=== PATIENT | female | born 1970 | race Two or more races ===

== ENCOUNTER 2017-12-24 22:07 | Inpatient (IN) | payer BC ==
[~2017-12-24] VITALS: Ht 152.4 cm; Wt 79.8 kg
[2017-12-24] MEDS ORDERED: FERROUS SULFAT325 MG ORAL (22:17)
[2017-12-24] MEDS ORDERED: FLUOXETINE HCL10 MG ORAL (22:17)
[2017-12-24] MEDS ORDERED: KLONOPIN0.5 MG ORAL (22:17)
[2017-12-24] MEDS ORDERED: Aspirin Baby 81mg ORAL ONE (22:45)
[2017-12-24 23:10] VITALS: BP 200/77
[2017-12-24 23:56] LABS: BASOPHILS % (AUTO) 1.4 % (0.0-2.0); EOSINOPHILS % (AUTO) 2.5 % (0.0-3.0); HEMATOCRIT 40.8 % (37.0-47.0); HEMOGLOBIN 12.7 G/DL (12.0-16.0); LYMPHOCYTES % (AUTO) 31.9 % (20.0-45.0); MEAN CORPUSCULAR VOLUME 74 FL (80-99); MONOCYTES % (AUTO) 9.6 % (1.0-10.0); NEUTROPHILS % (AUTO) 54.7 % (45.0-75.0); PLATELET COUNT 307 K/UL (150-450); RED BLOOD COUNT 5.48 M/UL (4.20-5.40); RED CELL DISTRIBUTION WIDTH 15.8 % (11.6-14.8); WHITE BLOOD COUNT 7.2 K/UL (4.8-10.8)
[2017-12-24 23:57] LABS: APPEARANCE,URINE CLEAR; BILIRUBIN, URINE NEGATIVE (NEGATIVE); COLOR,URINE PALE YELLOW; GLUCOSE, URINE (UA) NEGATIVE (NEGATIVE); KETONES,URINE NEGATIVE (NEGATIVE); LEUKOCYTE ESTERASE ,URINE NEGATIVE (NEGATIVE); NITRITE,URINE NEGATIVE (NEGATIVE); PH,URINE 6.5 (4.5-8.0); PROTEIN,URINE NEGATIVE (NEGATIVE); UROBILINOGEN,URINE NORMAL MG/DL (0.0-1.0)
[2017-12-25] VITALS (15 sets, daily range): BP systolic 108–175; BP diastolic 47–91
[2017-12-25 00:07] LABS: ANION GAP 7 mmol/L (5-15); BLOOD UREA NITROGEN 11 mg/dL (7-18); CALCIUM 9.5 MG/DL (8.5-10.1); CARBON DIOXIDE 25 MMOL/L (21-32); CHLORIDE 104 MMOL/L (98-107); CREATININE 0.6 MG/DL (0.55-1.30); SODIUM 136 MMOL/L (136-145)
[2017-12-25 00:20] LABS: ALANINE AMINOTRANSFERASE 25 U/L (12-78); ALBUMIN 4.1 G/DL (3.4-5.0); ALBUMIN/GLOBULIN RATIO 0.9 (1.0-2.7); ALKALINE PHOSPHATASE 79 U/L (46-116); ASPARTATE AMINO TRANSFERASE 11 U/L (15-37); BILIRUBIN,TOTAL 0.3 MG/DL (0.2-1.0); CKMB < 0.5 NG/ML (0.0-3.6); CREATINE KINASE 66 U/L (26-308)
--- NOTE | 2017-12-25 03:35 | Emergency Room Report ---
History of Present Illness General Chief Complaint: Dizziness Source: Patient Present Illness HPI Is a 47-year-old female with history of high blood pressure and anxiety. She present with chief complaint of dizziness. She's an onset today. 2 episode. When she stood up she felt lightheaded like she passed out. She fell to the floor once. No head injury and no loss of consciousness. [place] palpitation. No focal deficit. It happened once in the afternoon and again tonight so she came in. No chest pain. No slurred speech. Allergies: Coded Allergies: No Known Allergies (Unverified , 12/24/17) Patient History Past Medical History: see triage record, old chart reviewed, HTN, psych hx Past Surgical History: none Pertinent Family History: none Social History: Reports: smoking Last Menstrual Period: 12/04/17 Now: No Immunizations: other Reviewed Nursing Documentation: PMH: Agreed, PSxH: Agreed Nursing Documentation-PMH Past Medical History: No History, Except For Hx Cardiac Problems: No - Anemia Hx Hypertension: Yes History Of Psychiatric Problem: Yes - Anxiety Review of Systems Eye: Denies: eye pain, blurred vision ENT: Denies: ear pain, nose congestion, throat swelling Respiratory: Denies: cough, shortness of breath Cardiovascular: Denies: chest pain, palpitations Gastrointestinal: Denies: abdominal pain, diarrhea, nausea, vomiting Musculoskeletal: Denies: back pain, joint pain Skin: Denies: rash Neurological: Reports: dizziness, Denies: headache, numbness Endocrine: Denies: increased thirst, increased urine Hematologic/Lymphatic: Denies: easy bruising All Other Systems: negative except mentioned in HPI Physical Exam Vital Signs Date Time Temp Pulse Resp B/P (MAP) Pulse Ox O2 Delivery O2 Flow Rate FiO2 12/24/17 22:12 97.9 84 16 197/100 99 Room Air vitals with high blood pressure Sp02 EP Interpretation: reviewed, normal General Appearance: well appearing, no apparent distress, alert Head: normocephalic, atraumatic Eyes: bilateral eye PERRL, bilateral eye EOMI ENT: hearing grossly normal, normal pharynx Neck: full range of motion, supple, no meningismus Respiratory: chest non-tender, lungs clear, normal breath sounds Cardiovascular #1: regular rate, rhythm, no murmur Gastrointestinal: normal bowel sounds, non tender, no mass, no organomegaly, no bruit, non-distended Musculoskeletal: back normal, gait/station normal, normal range of motion Psychiatric: mood/affect normal Skin: warm/dry Procedures Laceration/Wound Repair Laceration/Wound Repair : Consent: Verbal Wound Location: face Wound's Depth, Shape: linear, irregular, contused tissue Wound Length (cm): 5 Wound Explored: clean Irrigated w/ Saline (ccs): 500 Anesthesia: 1% Lidocaine Volume Anesthetic (ccs): 500 Wound Repaired With: sutures Suture Size/Type: 5:0, proline Number of Sutures: 7 Patient Tolerated: Well Complications: None Medical Decision Making Diagnostic Impression: Primary Impression: Syncope and collapse Additional Impressions: Head injury, acute Qualified Codes: S09.90XA - Unspecified injury of head, initial encounter Forehead laceration Qualified Codes: S01.81XA - Laceration without foreign body of other part of head, initial encounter Hypertension Qualified Codes: I10 - Essential (primary) hypertension Orthostatic syncope ER Course This patient presents with dizziness and near syncope. Her blood pressurewas high here. She has been taking clonidine. Initial CT head, blood work and EKG were normal. She felt better was actually going to be discharged as she was to go home. She went to the restroom and she was on the toilet when she had a syncopal episode. She said that she became sweaty and dizzy. I see she knew she was on the ground. Sustained a laceration to the left forehead. It measured about 5 cm. No foreign body. Repeat CT scan is negative. Patient will be admitted. Her repeat EKG was normal. Her blood pressure was low. I discussed case with Dr. Ruiz who will admit based on insurance. Pt has IPA. Laboratory Tests Test 12/24/17 23:30 12/25/17 01:40 White Blood Count 7.2 K/UL (4.8-10.8) Red Blood Count 5.48 M/UL (4.20-5.40) H Hemoglobin 12.7 G/DL (12.0-16.0) Hematocrit 40.8 % (37.0-47.0) Mean Corpuscular Volume 74 FL (80-99) L Mean Corpuscular Hemoglobin 23.2 PG (27.0-31.0) L Mean Corpuscular Hemoglobin Concent 31.1 G/DL (32.0-36.0) L Red Cell Distribution Width 15.8 % (11.6-14.8) H Platelet Count 307 K/UL (150-450) Mean Platelet Volume 9.1 FL (6.5-10.1) Neutrophils (%) (Auto) 54.7 % (45.0-75.0) Lymphocytes (%) (Auto) 31.9 % (20.0-45.0) Monocytes (%) (Auto) 9.6 % (1.0-10.0) Eosinophils (%) (Auto) 2.5 % (0.0-3.0) Basophils (%) (Auto) 1.4 % (0.0-2.0) Urine Color Pale yellow Urine Appearance Clear Urine pH 6.5 (4.5-8.0) Urine Specific [place] 1.010 (1.005-1.035) Urine Protein Negative (NEGATIVE) Urine Glucose (UA) Negative (NEGATIVE) Urine Ketones Negative (NEGATIVE) Urine Occult Blood 1+ (NEGATIVE) H Urine Nitrite Negative (NEGATIVE) Urine Bilirubin Negative (NEGATIVE) Urine Urobilinogen Normal MG/DL (0.0-1.0) Urine Leukocyte Esterase Negative (NEGATIVE) Urine RBC 0-2 /HPF (0 - 2) Urine WBC 0-2 /HPF (0 - 2) Urine Squamous Epithelial Cells Occasional /LPF Urine Bacteria Occasional /HPF (NONE) Urine HCG, Qualitative Negative Sodium Level 136 MMOL/L (136-145) Potassium Level 4.0 MMOL/L (3.5-5.1) Chloride Level 104 MMOL/L (98-107) Carbon Dioxide Level 25 MMOL/L (21-32) Anion Gap 7 mmol/L (5-15) Blood Urea Nitrogen 11 mg/dL (7-18) Creatinine 0.6 MG/DL (0.55-1.30) Estimat Glomerular Filtration Rate > 60 mL/min (>60) Glucose Level 106 MG/DL (74-106) Calcium Level 9.5 MG/DL (8.5-10.1) Total Bilirubin 0.3 MG/DL (0.2-1.0) Aspartate Amino Transf (AST/SGOT) 11 U/L (15-37) L Alanine Aminotransferase (ALT/SGPT) 25 U/L (12-78) Alkaline Phosphatase 79 U/L (46-116) Total Creatine Kinase 66 U/L (26-308) Creatine Kinase MB < 0.5 NG/ML (0.0-3.6) Creatine Kinase MB Relative Index 0.7 Troponin I 0.000 ng/mL (0.000-0.056) 0.000 ng/mL (0.000-0.056) Total Protein 8.5 G/DL (6.4-8.2) H Albumin 4.1 G/DL (3.4-5.0) Globulin 4.4 g/dL Albumin/Globulin Ratio 0.9 (1.0-2.7) L Lab Results Impression labs normal EKG Diagnostic Results Rate: normal Rhythm: NSR ST Segments: no acute changes Other Impression EKG #2: normal sinus rhythm, no ST elevation Rhythm Strip Diag. Results Rhythm Strip Time: 03:31 EP Interpretation: yes Rate: 72 Rhythm: NSR, no PVC's, no ectopy Chest X-Ray Diagnostic Results Chest X-Ray Diagnostic Results : Chest X-Ray Ordered: Yes # of Views/Limited/Complete: 1 View Indication: Other - syncope EP Interpretation: Yes Interpretation: no consolidation, no effusion, no pneumothorax, no acute cardiopulmonary disease Impression: No acute disease Electronically Signed by: Tone Perry MD CT/MRI/US Diagnostic Results CT/MRI/US Diagnostic Results #1: Imaging Test Ordered: CT head Impression Neg per radiologist CT/MRI/US Diagnostic Results #2: Imaging Test Ordered: CT head Impression neg per radiologist. Last Vital Signs Date Time Temp Pulse Resp B/P (MAP) Pulse Ox O2 Delivery O2 Flow Rate FiO2 12/25/17 03:21 97.8 76 22 155/79 100 Room Air Status: improved Disposition: ADMITTED INPATIENT Referrals: MOY LLANOS,REFERRING (PCP) TONE PERRY M.D. Dec 25, 2017 03:35
[2017-12-25] MEDS ORDERED: SIMETHICONE80 MG ORAL (05:14)
[2017-12-25] MEDS ORDERED: clonazePAM 0.5mg tab ORAL PRN (06:30)
[2017-12-25] MEDS ORDERED: Mylanta II UD 30ml ORAL PRN (06:30)
[2017-12-25] MEDS ORDERED: Morphine Sulfate 2mg/ml Inj IVP PRN (06:30)
[2017-12-25] MEDS ORDERED: Nitroglycerin Subl 0.4mg tab SL PRN (06:30)
[2017-12-25] MEDS ORDERED: LORazepam Inj 2mg/ml 1ml IV PRN (06:30)
[2017-12-25] MEDS ORDERED: Albuterol/Ipratropium 3ml neb HHN PRN (06:30)
[2017-12-25] MEDS ORDERED: Miralax 17gm pkt ORAL PRN (06:30)
--- NOTE | 2017-12-25 08:59 | History and Physical ---
History of Present Illness General Date patient seen: Dec 25, 2017 Reason for Hospitalization: Dizziness Present Illness HPI 47-year-old female with history of high blood pressure and anxiety presented to with chief complaint of dizziness. When she stood up she felt lightheaded like she passed out. She fell to the floor once. [place] palpitation. No focal deficit. She went to the restroom in the ER and she was on the toilet when she had a syncopal episode. She said that she became sweaty and dizzy. She sustained a laceration to the left forehead. It was sutured by Er physician and she is admitted for recurrent syncopal episode and uncontrolled hypertension. Allergies: Coded Allergies: No Known Allergies (Unverified , 12/24/17) Medication History Scheduled Ferrous Sulfate* (Ferrous Sulfate*), 325 MG ORAL THREE TIMES A DAY, (Reported) Fluoxetine Hcl* (Fluoxetine Hcl*), 10 MG ORAL BEDTIME, (Reported) Scheduled PRN Clonazepam* (Klonopin*), 0.5 MG ORAL Q6H PRN for For Anxiety, (Reported) Simethicone* (Simethicone*), 80 MG ORAL Q8H PRN for GAS PAIN, (Reported) Patient History Healthcare decision maker Resuscitation status Full Code Advanced Directive on File Past Medical/Surgical History Past Medical/Surgical History: (1) Hypertension Review of Systems Constitutional: Reports: no symptoms Eye: Reports: no symptoms Respiratory: Reports: no symptoms Cardiovascular: Reports: no symptoms Physical Exam General Appearance: WD/WN Lines, tubes and drains: peripheral HEENT: normocephalic Neck: non-tender, supple Respiratory/Chest: chest wall non-tender, lungs clear, normal breath sounds Cardiovascular/Chest: normal peripheral pulses, normal rate Abdomen: normal bowel sounds, non tender Genitourinary/Rectal: normal genital exam Last 24 Hour Vital Signs Date Time Temp Pulse Resp B/P (MAP) Pulse Ox O2 Delivery O2 Flow Rate FiO2 12/25/17 08:00 98.1 89 18 147/82 95 Room Air 12/25/17 04:30 97.3 83 18 150/85 99 Room Air 12/25/17 03:52 87 12/25/17 03:35 97.8 76 22 155/79 100 Room Air 12/25/17 03:21 97.8 76 22 155/79 100 Room Air 12/25/17 02:50 97.8 86 16 162/68 99 Room Air 12/25/17 02:35 97.8 78 16 160/79 99 Room Air 12/25/17 02:20 97.9 78 16 148/80 99 Room Air 12/25/17 02:05 97.9 62 16 114/75 99 Room Air 12/25/17 01:50 97.9 62 16 109/70 99 Room Air 12/25/17 01:35 97.9 62 16 108/47 99 Room Air 12/25/17 01:10 97.9 85 16 159/82 99 Room Air 12/25/17 00:57 97.9 78 16 141/81 99 Room Air 12/25/17 00:45 97.9 69 16 159/81 99 Room Air 12/25/17 00:45 159/81 12/24/17 23:10 97.9 64 16 200/77 99 Room Air 12/24/17 22:12 97.9 84 16 197/100 99 Room Air Intake and Output 12/24/17 12/25/17 19:00 07:00 Intake Total 1000 ml Output Total 900 ml Balance 100 ml IV Total 1000 ml Output Urine Total 900 ml # Voids 3 Laboratory Tests Test 12/24/17 23:30 12/25/17 01:40 White Blood Count 7.2 K/UL (4.8-10.8) Red Blood Count 5.48 M/UL (4.20-5.40) H Hemoglobin 12.7 G/DL (12.0-16.0) Hematocrit 40.8 % (37.0-47.0) Mean Corpuscular Volume 74 FL (80-99) L Mean Corpuscular Hemoglobin 23.2 PG (27.0-31.0) L Mean Corpuscular Hemoglobin Concent 31.1 G/DL (32.0-36.0) L Red Cell Distribution Width 15.8 % (11.6-14.8) H Platelet Count 307 K/UL (150-450) Mean Platelet Volume 9.1 FL (6.5-10.1) Neutrophils (%) (Auto) 54.7 % (45.0-75.0) Lymphocytes (%) (Auto) 31.9 % (20.0-45.0) Monocytes (%) (Auto) 9.6 % (1.0-10.0) Eosinophils (%) (Auto) 2.5 % (0.0-3.0) Basophils (%) (Auto) 1.4 % (0.0-2.0) Urine Color Pale yellow Urine Appearance Clear Urine pH 6.5 (4.5-8.0) Urine Specific [place] 1.010 (1.005-1.035) Urine Protein Negative (NEGATIVE) Urine Glucose (UA) Negative (NEGATIVE) Urine Ketones Negative (NEGATIVE) Urine Occult Blood 1+ (NEGATIVE) H Urine Nitrite Negative (NEGATIVE) Urine Bilirubin Negative (NEGATIVE) Urine Urobilinogen Normal MG/DL (0.0-1.0) Urine Leukocyte Esterase Negative (NEGATIVE) Urine RBC 0-2 /HPF (0 - 2) Urine WBC 0-2 /HPF (0 - 2) Urine Squamous Epithelial Cells Occasional /LPF Urine Bacteria Occasional /HPF (NONE) Urine HCG, Qualitative Negative Sodium Level 136 MMOL/L (136-145) Potassium Level 4.0 MMOL/L (3.5-5.1) Chloride Level 104 MMOL/L (98-107) Carbon Dioxide Level 25 MMOL/L (21-32) Anion Gap 7 mmol/L (5-15) Blood Urea Nitrogen 11 mg/dL (7-18) Creatinine 0.6 MG/DL (0.55-1.30) Estimat Glomerular Filtration Rate > 60 mL/min (>60) Glucose Level 106 MG/DL (74-106) Calcium Level 9.5 MG/DL (8.5-10.1) Total Bilirubin 0.3 MG/DL (0.2-1.0) Aspartate Amino Transf (AST/SGOT) 11 U/L (15-37) L Alanine Aminotransferase (ALT/SGPT) 25 U/L (12-78) Alkaline Phosphatase 79 U/L (46-116) Total Creatine Kinase 66 U/L (26-308) Creatine Kinase MB < 0.5 NG/ML (0.0-3.6) Creatine Kinase MB Relative Index 0.7 Troponin I 0.000 ng/mL (0.000-0.056) 0.000 ng/mL (0.000-0.056) Total Protein 8.5 G/DL (6.4-8.2) H Albumin 4.1 G/DL (3.4-5.0) Globulin 4.4 g/dL Albumin/Globulin Ratio 0.9 (1.0-2.7) L Height (Feet): 5 Height (Inches): 0.00 Weight (Pounds): 176 Medications Current Medications Medications (Trade) Dose Ordered Sig/April Route PRN Reason Start Time Stop Time Status Last Admin Dose Admin Acetaminophen (Tylenol) 650 mg Q4H PRN ORAL fever 12/25/17 06:30 01/24/18 06:29 Al Hydroxide/Mg Hydroxide (Mylanta II) 30 ml Q6H PRN ORAL dyspepsia 12/25/17 06:30 01/24/18 06:29 Albuterol/ Ipratropium (Albuterol/ Ipratropium) 3 ml Q4H PRN HHN Shortness of Breath 12/25/17 06:30 12/30/17 06:29 Clonazepam (KlonoPIN) 0.5 mg Q6H PRN ORAL For Anxiety 12/25/17 06:30 01/01/18 06:29 Clonidine HCl (Catapres Tab) 0.1 mg Q4H PRN ORAL For High Blood Pressure 12/25/17 06:30 01/24/18 06:29 Dextrose (Dextrose 50%) STAT PRN IV Hypoglycemia 12/25/17 06:30 01/24/18 06:29 Fluoxetine HCl (PROzac) 10 mg BEDTIME ORAL 12/25/17 21:00 01/24/18 20:59 Heparin Sodium (Porcine) (Heparin 5000 units/ml) 5,000 units EVERY 12 HOURS SUBQ 12/25/17 09:00 01/24/18 08:59 Lorazepam (Ativan 2mg/ml 1ml) 0.5 mg Q4H PRN IV For Anxiety 12/25/17 06:30 01/01/18 06:29 Morphine Sulfate (Morphine Sulfate) 1 mg Q4H PRN IVP For Pain 7-10 12/25/17 06:30 01/01/18 06:29 Nitroglycerin (Ntg) 0.4 mg Q5M X 3 DOSES PRN SL Prn Chest Pain 12/25/17 06:30 01/24/18 06:29 Ondansetron HCl (Zofran) 4 mg Q6H PRN IVP Nausea & Vomiting 12/25/17 06:30 01/24/18 06:29 Polyethylene Glycol (Miralax) 17 gm HSPRN PRN ORAL Constipation 12/25/17 06:30 01/24/18 06:29 Temazepam (Restoril) 15 mg HSPRN PRN ORAL Insomnia 12/25/17 06:30 01/01/18 06:29 Assessment/Plan Problem List: (1) Syncope and collapse ICD Codes: R55 - Syncope and collapse SNOMED: [id number] (2) Hypertension ICD Codes: I10 - Essential (primary) hypertension SNOMED: 13033276 Qualifiers: Qualified Codes: I10 - Essential (primary) hypertension Assessment/Plan echo neuro and cardio evaluation monitor bp PEDRO PABLO ESTEVES Dec 25, 2017 08:59
[2017-12-25] MEDS: Heparin 5000 units/ml inj SUBQ SCH ×2 (09:53→21:12)
--- NOTE | 2017-12-25 10:41 | Diagnostic Imaging Report ---
Indication: Chest pain Technique: XRAY Chest 1v Comparison: None Findings: Heart appears enlarged. Mediastinal contours are sharp. There is no focal airspace consolidation, pleural effusion or pneumothorax. A 3 mm rounded structure projecting over the right heart border likely represents an imaged vessel on end. Metallic density structure projecting over the spine likely external to patient. No acute osseous abnormality seen. Impression: No radiographic evidence of acute cardiopulmonary disease. Mild cardiomegaly.
--- NOTE | 2017-12-25 11:39 | Diagnostic Imaging Report ---
Indication: Vertigo, syncope Technique: Continuous helical CT scanning of the head was performed utilizing automated exposure control without intravenous contrast material. Axial and coronal reconstructions were obtained. Comparison: None CT dose: Total DLP 1390.16 mGycm; CTDI vol 70.38 mGy Findings: There is no acute intracranial hemorrhage, mass effect or cortical edema. The ventricles, cisterns and sulci are normal for age. Visualized mastoid air cells and paranasal sinuses are unremarkable. No focal lesions of the bony calvarium or soft tissues of the scalp are seen. IMPRESSION: No evidence of acute intracranial hemorrhage, mass effect or cortical edema. MRI may be obtained for more sensitive evaluation as clinically indicated. This corresponds with the statrad preliminary report. The CT scanner at [facility] is accredited by the [employer] and the scans are performed using protocols designed to limit radiation exposure to as low as reasonably achievable to attain images of sufficient resolution adequate for diagnostic evaluation.
--- NOTE | 2017-12-25 11:44 | Diagnostic Imaging Report ---
Indication: Trauma. Technique: Continuous helical CT scanning of the head was performed utilizing automated exposure control without intravenous contrast material. Axial and coronal reconstructions were obtained. Comparison: 12/24/2017, 23:56 CT dose: Total DLP 1411.27 mGycm; CTDI vol 70.38 mGy Findings: There is no acute intracranial hemorrhage, mass effect or cortical edema. The ventricles, cisterns and sulci are normal for age. Visualized mastoid air cells and paranasal sinuses are unremarkable. There is no depressed skull fracture or scalp hematoma. IMPRESSION: No evidence of acute intracranial hemorrhage, mass effect or cortical edema. MRI may be obtained for more sensitive evaluation as clinically indicated. No depressed skull fracture. This corresponds with the statrad preliminary report. The CT scanner at [facility] is accredited by the [employer] and the scans are performed using protocols designed to limit radiation exposure to as low as reasonably achievable to attain images of sufficient resolution adequate for diagnostic evaluation.
[2017-12-25] MEDS ORDERED: FLUoxetine 10mg cap ORAL SCH (21:00)
[2017-12-26] VITALS: BP 147/82
[2017-12-26 04:00] VITALS: BP 135/76
[2017-12-26 08:00] VITALS: BP 187/93
[2017-12-26 08:38] LABS: BASOPHILS % (AUTO) 0.8 % (0.0-2.0); EOSINOPHILS % (AUTO) 1.2 % (0.0-3.0); HEMOGLOBIN 11.3 G/DL (12.0-16.0); LYMPHOCYTES % (AUTO) 35.2 % (20.0-45.0); MEAN CORPUSCULAR VOLUME 75 FL (80-99); MONOCYTES % (AUTO) 9.1 % (1.0-10.0); NEUTROPHILS % (AUTO) 53.7 % (45.0-75.0); PLATELET COUNT 296 K/UL (150-450); RED BLOOD COUNT 4.66 M/UL (4.20-5.40); RED CELL DISTRIBUTION WIDTH 15.9 % (11.6-14.8); WHITE BLOOD COUNT 8.1 K/UL (4.8-10.8)
--- NOTE | 2017-12-26 08:58 | Pulmonology Progress Note ---
Assessment/Plan Problems: (1) Syncope and collapse (2) Hypertension Assessment/Plan BP monitoring add Norvasc and clonidine awaiting cardio and neuro evaluation Subjective ROS Limited/Unobtainable: No Allergies: Coded Allergies: No Known Allergies (Unverified , 12/24/17) Objective Last 24 Hour Vital Signs Date Time Temp Pulse Resp B/P (MAP) Pulse Ox O2 Delivery O2 Flow Rate FiO2 12/26/17 08:23 61 18 Room Air 12/26/17 04:00 98.2 68 18 135/76 96 12/26/17 04:00 49 12/26/17 00:00 69 12/26/17 00:00 97.2 97 20 147/82 96 12/25/17 20:00 72 12/25/17 20:00 97.9 71 18 130/63 96 12/25/17 19:57 68 16 Room Air 12/25/17 17:35 175/91 12/25/17 16:00 83 12/25/17 16:00 98.1 80 18 175/91 96 Room Air 12/25/17 12:00 84 12/25/17 12:00 98.1 84 18 158/90 99 Room Air Intake and Output 12/25/17 12/26/17 19:00 07:00 Intake Total 1080 ml 240 ml Output Total 1500 ml Balance -420 ml 240 ml Intake Oral 1080 ml 240 ml Output Urine Total 1500 ml # Voids 1 Objective General Appearance: WD/WN HEENT: normocephalic Respiratory/Chest: chest wall non-tender, lungs clear, normal breath sounds Cardiovascular: normal peripheral pulses, normal rate Abdomen: normal bowel sounds, soft, non tender, no organomegaly Extremities: no cyanosis, no clubbing Neurologic/Psychiatric: cost controller II-XII grossly normal Lymphatic: no neck adenopathy Laboratory Tests 12/26/17 07:37: White Blood Count 8.1, Red Blood Count 4.66, Hemoglobin 11.3L, Hematocrit 35.0L , Mean Corpuscular Volume 75L, Mean Corpuscular Hemoglobin 24.2L, Mean Corpuscular Hemoglobin Concent 32.3, Red Cell Distribution Width 15.9H, Platelet Count 296, Mean Platelet Volume 9.4, Neutrophils (%) (Auto) 53.7, Lymphocytes (%) (Auto) 35.2, Monocytes (%) (Auto) 9.1, Eosinophils (%) (Auto) 1.2, Basophils (%) (Auto) 0.8, Prothrombin Time [Pending], Prothromb Time International Ratio [Pending], Activated Partial Thromboplast Time [Pending], Sodium Level [Pending], Potassium Level [Pending], Chloride Level [Pending], Carbon Dioxide Level [Pending], Blood Urea Nitrogen [Pending], Creatinine [ Pending], Estimat Glomerular Filtration Rate [Pending], Glucose Level [Pending] , Calcium Level [Pending], Total Bilirubin [Pending], Aspartate Amino Transf ( AST/SGOT) [Pending], Alanine Aminotransferase (ALT/SGPT) [Pending], Alkaline Phosphatase [Pending], Total Protein [Pending], Albumin [Pending], Globulin [ Pending], Triglycerides Level [Pending], Cholesterol Level [Pending], LDL Cholesterol [Pending], HDL Cholesterol [Pending], Cholesterol/HDL Ratio [Pending ], Thyroid Stimulating Hormone (TSH) [Pending] Current Medications Medications (Trade) Dose Ordered Sig/April Route PRN Reason Start Time Stop Time Status Last Admin Dose Admin Acetaminophen (Tylenol) 650 mg Q4H PRN ORAL fever 12/25/17 06:30 01/24/18 06:29 Al Hydroxide/Mg Hydroxide (Mylanta II) 30 ml Q6H PRN ORAL dyspepsia 12/25/17 06:30 01/24/18 06:29 Albuterol/ Ipratropium (Albuterol/ Ipratropium) 3 ml Q4H PRN HHN Shortness of Breath 12/25/17 06:30 12/30/17 06:29 Clonazepam (KlonoPIN) 0.5 mg Q6H PRN ORAL For Anxiety 12/25/17 06:30 01/01/18 06:29 Clonidine HCl (Catapres Tab) 0.1 mg Q4H PRN ORAL For High Blood Pressure 12/25/17 06:30 01/24/18 06:29 12/25/17 17:35 Dextrose (Dextrose 50%) STAT PRN IV Hypoglycemia 12/25/17 06:30 01/24/18 06:29 Ferrous Sulfate (Feosol) 325 mg THREE TIMES A DAY ORAL 12/25/17 10:00 01/24/18 09:59 Fluoxetine HCl (PROzac) 10 mg BEDTIME ORAL 12/25/17 21:00 01/24/18 20:59 12/25/17 21:09 Heparin Sodium (Porcine) (Heparin 5000 units/ml) 5,000 units EVERY 12 HOURS SUBQ 12/25/17 09:00 01/24/18 08:59 12/25/17 21:12 Ibuprofen (Advil) 200 mg Q4H PRN ORAL Breakthrough Pain 4-10 12/25/17 09:00 01/24/18 08:59 12/25/17 23:12 Lorazepam (Ativan 2mg/ml 1ml) 0.5 mg Q4H PRN IV For Anxiety 12/25/17 06:30 01/01/18 06:29 Morphine Sulfate (Morphine Sulfate) 1 mg Q4H PRN IVP For Pain 7-10 12/25/17 06:30 01/01/18 06:29 Nitroglycerin (Ntg) 0.4 mg Q5M X 3 DOSES PRN SL Prn Chest Pain 12/25/17 06:30 01/24/18 06:29 Ondansetron HCl (Zofran) 4 mg Q6H PRN IVP Nausea & Vomiting 12/25/17 06:30 01/24/18 06:29 Polyethylene Glycol (Miralax) 17 gm HSPRN PRN ORAL Constipation 12/25/17 06:30 01/24/18 06:29 Temazepam (Restoril) 15 mg HSPRN PRN ORAL Insomnia 12/25/17 06:30 01/01/18 06:29 PEDRO PABLO ESTEVES Dec 26, 2017 08:58
[2017-12-26 09:28] LABS: ALANINE AMINOTRANSFERASE 19 U/L (12-78); ALBUMIN 3.6 G/DL (3.4-5.0); ALBUMIN/GLOBULIN RATIO 0.9 (1.0-2.7); ALKALINE PHOSPHATASE 74 U/L (46-116); ANION GAP 10 mmol/L (5-15); ASPARTATE AMINO TRANSFERASE 9 U/L (15-37); BILIRUBIN,TOTAL 0.7 MG/DL (0.2-1.0); BLOOD UREA NITROGEN 10 mg/dL (7-18); CALCIUM 9.4 MG/DL (8.5-10.1); CARBON DIOXIDE 25 MMOL/L (21-32); CHLORIDE 103 MMOL/L (98-107); CHOLESTEROL 194 MG/DL (< 200); CREATININE 0.7 MG/DL (0.55-1.30); HDL CHOLESTEROL 41 MG/DL (40-60); SODIUM 138 MMOL/L (136-145); TRIGLYCERIDES 161 MG/DL (30-150)
[2017-12-26] MEDS: Heparin 5000 units/ml inj SUBQ SCH (10:27)
[2017-12-26] MEDS ORDERED: Miralax 17gm pkt ORAL PRN (11:00)
--- NOTE | 2017-12-26 11:55 | Neurology Progress Note ---
Interim History Interim History ROS Limited/Unobtainable: No Objective Physical Exam Last Vital Signs Date Time Temp Pulse Resp B/P (MAP) Pulse Ox O2 Delivery O2 Flow Rate FiO2 12/26/17 10:27 74 187/93 12/26/17 08:23 18 Room Air 12/26/17 08:00 97.3 98 12/25/17 08:03 21 Laboratory Tests Test 12/26/17 07:37 White Blood Count 8.1 K/UL (4.8-10.8) Red Blood Count 4.66 M/UL (4.20-5.40) Hemoglobin 11.3 G/DL (12.0-16.0) L Hematocrit 35.0 % (37.0-47.0) L Mean Corpuscular Volume 75 FL (80-99) L Mean Corpuscular Hemoglobin 24.2 PG (27.0-31.0) L Mean Corpuscular Hemoglobin Concent 32.3 G/DL (32.0-36.0) Red Cell Distribution Width 15.9 % (11.6-14.8) H Platelet Count 296 K/UL (150-450) Mean Platelet Volume 9.4 FL (6.5-10.1) Neutrophils (%) (Auto) 53.7 % (45.0-75.0) Lymphocytes (%) (Auto) 35.2 % (20.0-45.0) Monocytes (%) (Auto) 9.1 % (1.0-10.0) Eosinophils (%) (Auto) 1.2 % (0.0-3.0) Basophils (%) (Auto) 0.8 % (0.0-2.0) Prothrombin Time 10.4 SEC (9.30-11.50) Prothromb Time International Ratio 1.0 (0.9-1.1) Activated Partial Thromboplast Time 24 SEC (23-33) Sodium Level 138 MMOL/L (136-145) Potassium Level 4.0 MMOL/L (3.5-5.1) Chloride Level 103 MMOL/L (98-107) Carbon Dioxide Level 25 MMOL/L (21-32) Anion Gap 10 mmol/L (5-15) Blood Urea Nitrogen 10 mg/dL (7-18) Creatinine 0.7 MG/DL (0.55-1.30) Estimat Glomerular Filtration Rate > 60 mL/min (>60) Glucose Level 97 MG/DL (74-106) Calcium Level 9.4 MG/DL (8.5-10.1) Total Bilirubin 0.7 MG/DL (0.2-1.0) Aspartate Amino Transf (AST/SGOT) 9 U/L (15-37) L Alanine Aminotransferase (ALT/SGPT) 19 U/L (12-78) Alkaline Phosphatase 74 U/L (46-116) Total Protein 7.4 G/DL (6.4-8.2) Albumin 3.6 G/DL (3.4-5.0) Globulin 3.8 g/dL Albumin/Globulin Ratio 0.9 (1.0-2.7) L Triglycerides Level 161 MG/DL (30-150) H Cholesterol Level 194 MG/DL (< 200) LDL Cholesterol 130 mg/dL (<100) H HDL Cholesterol 41 MG/DL (40-60) Cholesterol/HDL Ratio 4.7 (3.3-4.4) H Thyroid Stimulating Hormone (TSH) 4.819 uiU/mL (0.358-3.740) Impression/Recommendations Problems: (1) Labyrinthine dysfunction of left ear (2) Hypertension, poor control (3) Orthostatic syncope (4) Forehead laceration Status: unchanged Recommendations #[id number] VENKAT [place] Dec 26, 2017 11:55
[2017-12-26 12:00] VITALS: BP 167/85
[2017-12-26] MEDS ORDERED: Meclizine 25mg tab ORAL PRN (12:00)
--- NOTE | 2017-12-26 15:01 | Cardiology Report ---
APPROVED REPORT EXAM: Two-dimensional and M-mode echocardiogram with Doppler and color Doppler. INDICATION LV FUNCTION M-Mode DIMENSIONS IVSd1.4 (0.7-1.1cm)Left Atrium (MM)2.8 (1.6-4.0cm) LVDd4.2 (3.5-5.6cm)Aortic Root2.9 (2.0-3.7cm) PWd0.8 (0.7-1.1cm)Aortic Cusp Exc.1.7 (1.5-2.0cm) IVSs1.7 cm LVDs2.5 (2.5-4.0cm) PWs1.3 cm Normal left ventricular chamber size, systolic function and wall motion. Left ventricular ejection fraction estimated to be 65-70 %. Mild left ventricular hypertrophy by 2-D. No evidence of pericardial effusion All other cardiac chamber sizes are within normal limits. Focal aortic valve sclerosis with adequate cusp excursion. Mild Thickened mitral valve leaflets with normal excursion. Mild Mitral annulus and aortic root calcification. Pulmonic valve not well visualized. Normal tricuspid valve structure. IVC at normal size with physiologic collapse. A color flow and spectral Doppler study was performed and revealed: No aortic regurgitation. Mild mitral regurgitation. Mitral diastolic velocities suggest reduced left ventricular relaxation c/w mild LV diastolic dysfunction (Grade I ) Mild tricuspid regurgitation. Tricuspid systolic velocities suggests peak right ventricular systolic pressure of 35 mmHg,consistent with mild pulmonary hypertension. No Pulmonic regurgitation present.
--- NOTE | 2017-12-26 15:08 | Cardiology Report ---
APPROVED REPORT EKG Measurement Heart [id number] CT 150P71 [id number] Normal sinus rhythm T wave abnormality, consider anterior ischemia Prolonged QT Abnormal ECG
--- NOTE | 2017-12-26 15:10 | Cardiology Report ---
APPROVED REPORT EKG Measurement Heart [id number] [place] 152P66 [id number] Normal sinus rhythm Possible Lateral infarct, age undetermined Abnormal ECG
[2017-12-26 16:00] VITALS: BP 134/77
--- NOTE | 2017-12-26 17:44 | Cardiology Progress Note ---
Subjective Subjective [id number] Objective Last 24 Hour Vital Signs Date Time Temp Pulse Resp B/P (MAP) Pulse Ox O2 Delivery O2 Flow Rate FiO2 12/26/17 16:00 96.6 72 18 134/77 96 Room Air 12/26/17 13:13 167/85 12/26/17 12:00 92 12/26/17 12:00 97.9 72 20 167/85 99 Room Air 12/26/17 10:27 74 187/93 12/26/17 08:23 61 18 Room Air 12/26/17 08:00 67 12/26/17 08:00 97.3 74 18 187/93 98 Room Air 12/26/17 04:00 98.2 68 18 135/76 96 12/26/17 04:00 49 12/26/17 00:00 69 12/26/17 00:00 97.2 97 20 147/82 96 12/25/17 20:00 72 12/25/17 20:00 97.9 71 18 130/63 96 12/25/17 19:57 68 16 Room Air Intake and Output 12/25/17 12/26/17 19:00 07:00 Intake Total 1080 ml 240 ml Output Total 1500 ml Balance -420 ml 240 ml Intake Oral 1080 ml 240 ml Output Urine Total 1500 ml # Voids 1 Laboratory Tests Test 12/26/17 07:37 White Blood Count 8.1 K/UL (4.8-10.8) Red Blood Count 4.66 M/UL (4.20-5.40) Hemoglobin 11.3 G/DL (12.0-16.0) L Hematocrit 35.0 % (37.0-47.0) L Mean Corpuscular Volume 75 FL (80-99) L Mean Corpuscular Hemoglobin 24.2 PG (27.0-31.0) L Mean Corpuscular Hemoglobin Concent 32.3 G/DL (32.0-36.0) Red Cell Distribution Width 15.9 % (11.6-14.8) H Platelet Count 296 K/UL (150-450) Mean Platelet Volume 9.4 FL (6.5-10.1) Neutrophils (%) (Auto) 53.7 % (45.0-75.0) Lymphocytes (%) (Auto) 35.2 % (20.0-45.0) Monocytes (%) (Auto) 9.1 % (1.0-10.0) Eosinophils (%) (Auto) 1.2 % (0.0-3.0) Basophils (%) (Auto) 0.8 % (0.0-2.0) Prothrombin Time 10.4 SEC (9.30-11.50) Prothromb Time International Ratio 1.0 (0.9-1.1) Activated Partial Thromboplast Time 24 SEC (23-33) Sodium Level 138 MMOL/L (136-145) Potassium Level 4.0 MMOL/L (3.5-5.1) Chloride Level 103 MMOL/L (98-107) Carbon Dioxide Level 25 MMOL/L (21-32) Anion Gap 10 mmol/L (5-15) Blood Urea Nitrogen 10 mg/dL (7-18) Creatinine 0.7 MG/DL (0.55-1.30) Estimat Glomerular Filtration Rate > 60 mL/min (>60) Glucose Level 97 MG/DL (74-106) Calcium Level 9.4 MG/DL (8.5-10.1) Total Bilirubin 0.7 MG/DL (0.2-1.0) Aspartate Amino Transf (AST/SGOT) 9 U/L (15-37) L Alanine Aminotransferase (ALT/SGPT) 19 U/L (12-78) Alkaline Phosphatase 74 U/L (46-116) Total Protein 7.4 G/DL (6.4-8.2) Albumin 3.6 G/DL (3.4-5.0) Globulin 3.8 g/dL Albumin/Globulin Ratio 0.9 (1.0-2.7) L Triglycerides Level 161 MG/DL (30-150) H Cholesterol Level 194 MG/DL (< 200) LDL Cholesterol 130 mg/dL (<100) H HDL Cholesterol 41 MG/DL (40-60) Cholesterol/HDL Ratio 4.7 (3.3-4.4) H Thyroid Stimulating Hormone (TSH) 4.819 uiU/mL (0.358-3.740) MARK JONES Dec 26, 2017 17:44
--- NOTE | 2017-12-26 17:45 | Consultation ---
DATE OF CONSULTATION: 12/26/2017 NEUROLOGICAL CONSULTATION CONSULTING PHYSICIAN: Marquis Cabrera M.D. REQUESTING PHYSICIAN: Erika Ruiz M.D. HISTORY OF PRESENT ILLNESS: This is a 47-year-old female, seen in neurological consultation to evaluate a new onset of positional dizziness, unsteady gait, nausea, and uncontrollable high blood pressure. The patient informed me that last week, she felt pain in her left ear and then pressure sensation in the left ear. Also at the same time, the patient stopped using clonidine, which was given recently for exacerbation of her blood pressure. On Wednesday, she was feeling well in the morning, but then in the afternoon, she started to develop acute sensation of dizziness, lightheadedness, significant gait instability, and nausea. She suspected panic attacks, taking 0.25 mg of Klonopin, has slept well, woke up, feeling better, but then again developed a positional dizziness and gait instability. With this, she was sent into emergency room. The patient also indicated that when she is standing up, she feels lightheaded like she is going to pass out. She reported falling to the floor once. There was no chest pain. No slurred speech. Her blood pressure was 197/100 and temperature 97.[address] of the brain was obtained. This was negative. EKG showed no abnormalities. Her blood work included mild anemia, low MCV and MCH, normal coagulation panel, urinalysis, and electrolyte panel was rather unremarkable, but TSH was slightly high at 4.817. LDL 130 and triglycerides 161. The patient described that she was ready to be discharged home. When she went to the bathroom accompanied by her nurse, she sat on the toilet where she suddenly felt sweaty, dizzy, and lost consciousness. Next, she was on the ground with blood coming from laceration on her left forehead. She was evaluated. Laceration was 5 cm, was sutured. Repeat CT scan was obtained. This was also negative. EKG repeatedly was normal, but her blood pressure was low, down to 109/70. Her blood pressure was still fluctuating. The patient was hospitalized for closer observation. No further paroxysmal events noted. Today, the patient felt much better. No dizziness. No gait instability. PAST MEDICAL HISTORY: The patient has a history of anxiety with panic attacks, history of hypertension. MEDICATIONS: Treatment prior to admission included Klonopin 0.5 mg as needed, , fluoxetine 10 mg at bedtime, simethicone 80 mg daily. She is off medication for blood pressure over the last few days. SOCIAL HISTORY: with children. No alcohol. No drug abuse. Nonsmoker. REVIEW OF SYSTEMS: Currently, she is feeling fairly well. No dizziness. There is slight discomfort in her nasal passages, sinuses "as in her left ear where she was told has fluid." Denies chest pain or palpitations. No respiratory problems. Denies abdominal pain or discomfort. No urine or bowel incontinence. PHYSICAL EXAMINATION: GENERAL: A well-developed, well-nourished female, not in acute distress. VITAL SIGNS: Her blood pressure now 187/93, temperature 97.3 degrees, and heart rate of 74. HEENT: Head, normocephalic. No evidence of trauma. Eyes, ears, and throat are clear. NECK: Supple. No meningeal signs. No otorrhea. No rhinorrhea. MENTAL STATUS: Alert and oriented x3 with no evidence of aphasia or apraxia. Cognitive function normal. CRANIAL NERVE II: Pupils both responding to light and accommodation. Extraocular movements full range. CRANIAL NERVE V: Normal corneal responses. CRANIAL NERVE VII: No facial asymmetry. CRANIAL NERVE VIII: No gross asymmetry. Normal hearing. CRANIAL NERVE IX THROUGH XII: Tongue is in midline. Symmetric palate elevation. MOTOR EXAMINATION: Normal muscle tone. Strength 5/5 in all extremities. No involuntary movement. Deep tendon reflexes 1+ and symmetric with downgoing toes on both sides. SENSORY EXAM: Normal to pinprick and light touch. Gait is slow, but stable. IMPRESSION: 1. Acute dizziness with nausea and gait ataxia, probably represent vestibular dysfunction. 2. New onset of slight hearing loss on the left with left-sided preauricular pain/pressure sensation. 3. Rule out otitis media. 4. Hypertension, out of control. 5. Anxiety, panic attack. RECOMMENDATION: The patient neurologically stabilized. The patient to be seen by ENT. The patient needs proper blood pressure control. Maintain fall precautions. The patient had episodes of syncope, probably vasovagal based on poorly controlled hypertension and dehydration. The patient will continue with cardiac monitoring. Maintain normal systolic blood pressure. Start on aspirin 81 mg and meclizine 12.5 mg t.i.d. p.r.n. for dizziness. Thank you for allowing me to see this interesting patient in neurological consultation. Marquis Cabrera M.D. DR: SCOTT JOB#: [id number] CC:
--- NOTE | 2017-12-26 22:00 | Consultation ---
DATE OF CONSULTATION: 12/26/2017 CARDIOLOGY CONSULTATION CONSULTING PHYSICIAN: Francesca Randolph M.D. ATTENDING PHYSICIAN: Erika Ruiz M.D. IDENTIFYING DATA: This is a 47-year-old female. REASON FOR EVALUATION: Syncopal episode. SOURCE OF HISTORY: History is taken from the patient. HISTORY OF PRESENT ILLNESS: This is a very pleasant 47-year-old female who was admitted with syncope yesterday. She initially has history of panic attack and she was taking Celexa for 10 years. She was taking 10 mg a day and she was totally stable, however, she ran out of Celexa about a month ago and then she was seen by primary doctor and her blood pressure was very high. She was given clonidine and she was taking this clonidine twice a day, but then it was discontinued and then she took another dose of clonidine and she ended up in the emergency department where she was evaluated, she was given IV hydralazine and after that, her blood pressure dropped, she collapsed sitting on the toilet, and she lacerated her eyebrow on the left. Now, she feels fine. She just wants to have more guidelines. No chest pain. No palpitations. PAST MEDICAL HISTORY: Panic attack and anxiety, one , borderline diabetes with hemoglobin A1c of 6. HOME MEDICATIONS: Celexa, simethicone, iron, and clonazepam. ALLERGIES: Not reported. HABITS: No history of drinking, smoking, or drug abuse. SOCIAL HISTORY: Independent, working, lives at home. PHYSICAL EXAMINATION: GENERAL: This is a pleasant, anxious female, not in acute distress with elevated blood pressure. VITAL SIGNS: Blood pressure varying between 200/92 down to 140/70, heart rate 70, temperature is normal, and oxygen saturation is normal. HEENT: PERRLA. EOMI. She had laceration, sutured on the left eyebrow with some bruising around it. NECK: Supple. No carotid bruit. LUNGS: Few crackles at bases. HEART: Regular. There is no S4. PMI is in the fifth intercostal space in midclavicular line. BREASTS: No masses. ABDOMEN: Soft. No bruit. No hepatomegaly. No masses palpable. EXTREMITIES: Lower extremities, no edema. Distal pulses palpable. NEUROLOGICAL: She is intact. LABORATORY AND DIAGNOSTIC DATA: Her laboratory data were all reviewed including CT of the chest, which was done twice. Chest x-ray . EKG shows T-wave inversions in V1, V2 and V3. Echo did not show any LVH. Chest x-ray was unremarkable. Labs showed low hemoglobin at 11.3 and troponin was normal. Her lipid panel revealed LDL of 130 and HDL 41. TSH was . IMPRESSION AND RECOMMENDATION: 1. Elevated blood pressure in the setting of withdrawal from Celexa and anxiety. 2. Syncopal episode after hydralazine due to hypertension. 3. Possible essential hypertension. 4. Mild hyperlipidemia and mild glucose intolerance and mild hypothyroidism. PLAN: The patient was started on Celexa. I am not going to give any blood pressure medications and I urged her to follow with doctor and she has a blood pressure cuff at home. She is going to register her blood pressure on a regular basis and seek medical care. If her blood pressure is persistently elevated after she had completely controlled her panic attacks with Celexa. She has a regular doctor who is going to follow her up. I instructed her also to keep on low-sodium diet, exercise, and weight loss which can assist with hypertension management. She denied any symptoms of high blood pressure right now. No headaches and I think it is safe for her to be followed as outpatient with blood pressure measurements and then I told her never take clonidine or hydralazine and she is going to be managed by her primary doctor. She has appointment in two weeks. Thank you. Francesca Randolph M.D. DR: DEBBY JOB#: [id number] CC:
--- NOTE | 2017-12-27 21:28 | Discharge Summary ---
Discharge Summary Hospital Course Date of Admission Dec 25, 2017 at 01:45 Date of Discharge Dec 26, 2017 at 19:15 Admitting Diagnosis syncope HPI Mariam Walls is a 47 year old female who was admitted on Dec 25, 2017 at 01: 45 for Syncope Procedures dc summary #[id number] Discharge Condition Upon Discharge: stable Discharge Disposition Patient was discharged to Home () Discharge Diagnoses: Discharge Instructions Discharge Instructions Special Instructions I have been assigned to complete a D/C Summary on this account. I was not involved in the patient management Rosa Albarado NP (Vanchtein) Dec 27, 2017 21:28
--- NOTE | 2017-12-28 04:45 | Discharge Summary 2 SIG ---
DATE OF ADMISSION: 12/25/2017 DATE OF DISCHARGE: 12/26/2017 REASON FOR ADMISSION: 47-year-old female with history of anxiety, panic attacks, and hypertension, presented with chief complaint of dizziness. The patient reported two episodes of lightheadedness. When she passed out, she fell on the floor once. She denied head injury. She denied loss of consciousness. She felt palpitations. No focal deficit. No chest pain. No shortness of breath. No slurred speech. Vital signs revealed severely elevated blood pressure -197/100, otherwise stable vital signs. EKG revealed normal sinus rhythm, no acute ischemic changes. Troponin was negative. No leukocytosis. Stable hemoglobin and hematocrit. Urinalysis with no evidence of UTI. Urine test negative. Stable renal parameters and electrolytes. CK- 66. Chest x-ray revealed no acute cardiopulmonary disease. CT of the head revealed no acute intracranial pathology. She felt better in the emergency department and was about to be discharged. However, she went to the restroom and was on the toilet seat, when she had a syncopal episode. She stated that she became sweaty and dizzy. She was on the ground and sustained a laceration to the left forehead which measured about [address] of the head was again negative with no evidence of acute intracranial pathology. The patient had undergone repair of forehead laceration while she was in the emergency department, and was admitted for further management with diagnoses of syncope, acute headinjury, forehead laceration, hypertensive urgency. HOSPITAL COURSE: The patient admitted to the telemetry floor. Neurology and cardiology evaluations were requested. Neurologist had seen and evaluated the patient, and diagnosed the patient with acute dizziness with nausea and gait ataxia, probably represented vestibular dysfunction. The patient also reported slight hearing loss on the left with left-sided preauricular pain , pressure like sensation. The patient neurologically stabilized. Per Neurology, the patient need to be seen by ENT for probable vestibular dysfunction. Fall precautions were maintained. The patient was started on meclizine and aspirin. Per neurologist, syncope was likely vasovagal due to poorly controlled hypertension and dehydration. Rf Engineer had seen and evaluated the patient. Echocardiogram revealed preserved ejection fraction of 65% to 70%, right ventricular systolic pressure of 30 consistent with mild pulmonary hypertension. Lipid panel revealed elevated LDL -130, elevated triglycerides -161, elevated TSH -4.819. Troponin x2 were negative. EKG was repeated and showed no acute ischemic changes. No evidence of arrhythmia on telemetry. Per Cardiology, the patient had syncopal episode after hydralazine that she was taking for hypertension. The patient noted to have mild hyperlipidemia and mild hypothyroidism. The patient also did not take her Celexa and was anxious and that likely precipitated the event. The patient restarted on Celexa. Rf Engineer recommended low-sodium diet, exercise, and weight loss to help with blood pressure control. The patient was reminded not to take clonidine or hydralazine as it could cause orthostatic changes. The patient to follow up with primary care provider for further management of blood pressure. The patient meantime was started on calcium-channel aaliyah. Blood pressure was controlled. Blood pressure prior to discharge -134/77. Dizziness resolved. DVT prophylaxis provided. Bowel regimen provided. Fall precautions were maintained. No further episodes of syncope while in the hospital. The patient was stable for discharge home. Due to rapid and unexpected improvement in patient's condition, the patient was discharged in one day. FINAL DIAGNOSES: 1. Syncopal episode, likely vasovagal secondary to poorly controlled hypertension and dehydration. 2. Hypertensive urgency. 3. Forehead laceration, status post repair. 4. Mixed hyperlipidemia. 5. Possibly mild hypothyroidism. 6. Anxiety. 7. Acute dizziness with nausea and gait ataxia, probably representing vestibular dysfunction. 8. New onset of slight hearing loss on the left with left-sided preauricular pain/pressure sensation, rule out otitis media. 9. Anxiety, panic attacks DISCHARGE MEDICATIONS: The patient was given prescription for meclizine, aspirin, and Norvasc. DISCHARGE INSTRUCTIONS: The patient was discharged home. Follow up with primary care provider for further management of blood pressure. The patient instructed on weight loss, exercise, and low-sodium low-cholesterol diet. The patient was also advised to have full thyroid panel with primary care provider to follow up on mildly elevated TSH. Erika Ruiz M.D. I have been assigned to dictate discharge summary on this account and I was not involved in the patient's management. Rosa Albarado N.P. (vanchtein) DR: Gneia JOB#: [id number] CC: ANDERS
--- NOTE | 2017-12-28 13:12 | Diagnostic Imaging Report ---
APPROVED REPORT CPT Code: 07579 Vascular Symptoms CVA/TIA: CAROTID (BILATERAL) - Imaging reveals no significant plaque within the right and left extracranial carotid arteries. The Doppler spectral flow analysis is within normal limits throughout the extracranial carotid arteries bilaterally. VERTEBRAL- The vertebral arteries are within normal limits.
== END 2017-12-26 19:15 | disposition home or self-care (01) | DRG 305 ==
LOC: EMR 22:38 → 2E 12-25 01:45 → EDBEDREQ 12-25 01:56
PROC: 0HQ1XZZ Repair Face Skin, External Approach (ICD-10-PCS; principal; 2017-12-25)
DX: I16.0 Hypertensive urgency (principal); I27.20 Pulmonary hypertension, unspecified; E86.0 Dehydration; S01.81XA Laceration without foreign body of other part of head, initial encounter; W18.11XA Fall from or off toilet without subsequent striking against object, initial encounter; Y92.89 Other specified places as the place of occurrence of the external cause; F41.9 Anxiety disorder, unspecified; E78.5 Hyperlipidemia, unspecified; E03.9 Hypothyroidism, unspecified; H81.90 Unspecified disorder of vestibular function, unspecified ear; F41.0 Panic disorder [episodic paroxysmal anxiety]; H66.92 Otitis media, unspecified, left ear
CPT/HCPCS: 36415; 70450; 71045; 80053; 80061; 81003; 81025; 82550; 82553; 84443; 84484; 85025; 85610; 85730; 93005; 93306; 93880; 94664; 99285; J2405